=== PATIENT | male | born 1995 | race Two or more races ===

== ENCOUNTER 2017-12-18 23:47 | Emergency (ER) | payer SELFPAY ==
--- NOTE | 2017-12-19 01:03 | RADIOLOGY REPORT (SQ) ---
EXAM DESCRIPTION: XR HAND 3 OR MORE VIEWS COMPLETED DATE/TME: 12/19/2017 00:00 CLINICAL HISTORY: 22 years, Male, injury COMPARISON: None. NUMBER OF VIEWS: 3 LIMITATIONS: None. FINDINGS: Comminuted intra-articular fracture at the base of the left first metacarpus with 0.2 cm distraction-lateral displacement. IMPRESSION: Fracture at the base of the left thumb.
[2017-12-19] MEDS ORDERED: OXYCODONE-ACETAMINOPHEN 5-325 MG TABLET PO ONE (01:52)
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
[2017-12-19 02:23] VITALS: BP 115/74
== END 2017-12-19 02:23 | disposition home or self-care (01) ==
LOC: ER 23:47
DX: S62.512A Displaced fracture of proximal phalanx of left thumb, initial encounter for closed fracture (principal); V19.9XXA Pedal cyclist (driver) (passenger) injured in unspecified traffic accident, initial encounter
CPT/HCPCS: 99283